=== PATIENT | male | born 1960 ===

== ENCOUNTER 2020-02-17 09:05 | Outpatient (REF) | payer OTHER, SELFPAY ==
[2020-02-17 12:02] LABS: Alanine Aminotransferase 48 U/L (0-40); Albumin Level 4.4 g/dL (3.5-5.0); Alkaline Phosphatase 85 U/L (39-117); Anion Gap 10 (12-20); Aspartate Amino Transferase 44 U/L (5-37); Bilirubin Total 1.6 mg/dL (0.0-1.0); Blood Urea Nitrogen 16 mg/dL (9-16); Calcium 9.8 mg/dL (8.4-10.2); Carbon Dioxide 28 mmol/L (22-29); Chloride 105 mmol/L (96-108); Cholesterol 233 mg/dL; Estimated Glomerular Filt Rate > 60; Glucose Fasting 91 mg/dL (60-99); HDL Cholesterol 34 mg/dL; LDL Cholesterol Calculated 153 mg/dl; Potassium 4.6 mmol/l (3.3-5.1); Sodium 138 mmol/L (135-145); Total Protein 6.8 g/dL (6.5-8.0); Triglycerides 231 mg/dL
[2020-02-17 12:23] LABS: Prostate Specific Antigen Scr 0.81 ng/mL (<0.05-4.0); TSH reflex Free T4 0.84 mIU/mL (0.32-4.0); Vitamin D 25-OH Total 27.4 ng/mL (>30)
== END 2020-02-17 09:06 | disposition home or self-care (01) ==
LOC: HO.HMGCLDS 09:05
PROVIDERS: PCP Nurse Practitioner Family; Visit Provider Nurse Practitioner Family
DX: Z13.1 Encounter for screening for diabetes mellitus (principal); Z13.220 Encounter for screening for lipoid disorders; Z13.21 Encounter for screening for nutritional disorder; Z13.29 Encounter for screening for other suspected endocrine disorder; Z12.5 Encounter for screening for malignant neoplasm of prostate
CPT/HCPCS: 36415; 80053; 80061; 82306; 84153; 84443

== ENCOUNTER → 2020-03-01 13:27 | Outpatient (REF) | payer OTHER, SELFPAY ==
--- NOTE | 2020-03-01 14:00 | CA_ITS ---
Transthoracic Echocardiogram Patient (Last, First, Middle): Navid Bates, Gender: Male Date of : 1960 Age: 59 Procedure Date: 03/01/2020 Procedure Type: Transthoracic Echocardiogram Location: OP Height: 165.1 cm Weight: 72.58 kg BSA: 1.80 m2 Heart Rate: bpm BP: 136 / 86 mmHg Gambling Counsellor: FIDE Referring MD: Manjit Kapoor [facility] Symptoms: R01.1 Systolic murmur Conclusions: - Normal biventricular function. No significant valvular or pericardial pathology noted. Normal PA pressures. Findings Left Ventricle Normal left ventricular size and systolic function. There is mildly increased left ventricular wall thickness. The visually estimated ejection fraction is between 60-65%. There is no evidence of regional wall motion abnormalities. Diastolic function is indeterminate on the basis of available data. Spectral Doppler is indicative of an impaired relaxation filling pattern. E/E prime ratio is <8, consistent with normal filling pressures. Right Ventricle Normal right ventricular cavity size and systolic function. Atria Both atria are normal in size. Aortic Valve Normal aortic valve structure and function. There is no aortic valve stenosis. There is no aortic valve regurgitation. Mitral Valve Normal mitral valve structure and function. There is trace mitral valve regurgitation. There is no mitral valve stenosis. Pulmonic Valve Normal pulmonic valve structure and function. There is trace pulmonic valve regurgitation. Tricuspid Valve Normal tricuspid valve structure and function. There is trace tricuspid valve regurgitation. Normal right atrial pressure. There is no evidence of pulmonary hypertension. Great Vessels The visualized portions of the pulmonary artery and branches are normal. Venous The inferior vena cava is normal in size and collapses greater than 50% with inspiration. Pericardium/Pleural There is no evidence of pericardial effusion. Prior Study Comparison No prior study available for comparison. Measurements M-Mode Liner Measurements Normals - Women/Men IVSd: 1.50 0.6-0.9/0.6-1.0 cm LVIDd: 4.36 3.9-5.3/4.2-5.9 cm LVIDd Index: 2.42 1.9-3.2 cm/m2 LVPWd: 1.29 0.6-0.9/0.6-1.0 cm LV Mass: 293.95 67-162/88-224g LV Mass Index: 163.31 43-95/49-115 g/m2 M-Mode Volumes LV EDV: 85.80 2D Linear Measurements IVSd: 1.34 0.6-0.9/0.6-1.0 cm LVIDd: 4.60 3.9-5.3/4.2-5.9 cm LVIDd Index: 2.56 2.4-3.2/2.2-3.1 cm/m2 LVIDs: 2.93 2.0-3.6 cm LVPWd: 1.03 0.7-1.1 cm Ao Root: 2.80 2.1-3.5 cm LA Diam: 3.10 2.7-3.8/3.0-4.0 cm LAIDs Index: 1.72 1.5-2.3 cm/m2 LV Mass: 250.92 67-162/88-224 g LV Mass Index: 139.40 43-95/49-115 g/m2 LVOT Diam: 2.00 3.0+(-)1.3 cm 2D Systolic Function EF 4C: 58.40 >55% EF 2C: 76.40 >55% EF BiP: 68.10 >55% Mitral Valve MV Pk E: 0.54 MV PK A: 0.68 MV Decel Time: 217.00 E/A: 0.80 E'Lateral: 7.45 E/E' Lat: 7.30 PHT: 63.00 MVA PHT: 3.49 Decel [place]: 2.51 Aortic Valve AoV Pk Baron: 1.37 AoV Pk Grad: 8.00 LVOT LVOT Pk Baron: 1.12 LVOT Mn Baron: 0.79 LVOT VTI: 0.21 LVOT Pk Grad: 5.00 LVOT Mn Grad: 3.00 LVOT Diam: 2.00 LVOT Area: 3.14 Diastolic Function MV Pk E: 0.54 MV Pk A: 0.68 E/A: 0.80 E' Laterial: 7.45 E/E' Lat: 7.30 Tricuspid Valve TR Pk Baron: 2.36 TR Pk Grad: 22.00 RA Press: 3.00 RVSP: 25.00 Great Vessels Aorta Ao Root-2D: 2.80 2.0-3.7 cm Ao Asc: 3.00 2.1-3.4 cm Updated in Other Vendor System with Status of Final Bi Lopez MD electronically signed on 03/02/2020 7:23:35 PM with status of Final
== END ==
LOC: HO.CARD 13:27
PROVIDERS: PCP Nurse Practitioner Family; Visit Provider Nurse Practitioner Family
DX: R01.1 Cardiac murmur, unspecified (principal)
CPT/HCPCS: 93306

== ENCOUNTER 2020-03-06 08:54 | Outpatient (REF) | payer OTHER, SELFPAY ==
--- NOTE | 2020-03-06 08:57 | US_ITS ---
EXAMINATION: US ABDOMEN COMPLETE CLINICAL INFORMATION: Elevated LFTs. COMPARISON: None TECHNIQUE: Real-time imaging of the abdominal viscera. FINDINGS: PANCREAS: Normal. ABDOMINAL AORTA: The proximal, mid, and distal segments are normal in caliber. INFERIOR VENA CAVA: Visualized portions are normal. LIVER: The liver is normal in size. The liver contour is normal. Parenchymal echogenicity is normal. No focal hepatic lesion. There is no intrahepatic biliary duct dilatation seen. There is echogenic granuloma, right lobe, measuring 0.6 x 0.7 x 0.6 cm. GALLBLADDER: Normal. The gallbladder is physiologically distended without evidence of stones, sludge, polyps, wall thickening or pericholecystic fluid. COMMON BILE DUCT: Normal in caliber measuring 0.5 cm in diameter. RIGHT KIDNEY: No hydronephrosis. No renal calculi or focal parenchymal lesions. The kidney measures 10.4 cm in maximum dimension. There is an echogenic area in the midpole measuring 0.3 x 0.5 x 0.4 cm suspicious for a small stone or calcification. No caliectasis seen. LEFT KIDNEY: No hydronephrosis or renal calculi. The kidney measures 10.3 cm in maximum dimension. There is an exophytic cyst midpole laterally measuring 1.7 x 2.2 x 2.3 cm. SPLEEN: Normal. The spleen measures 8.9 cm in maximum dimension. FREE FLUID: None. IMPRESSION: 1. Granuloma right hepatic lobe measuring 0.7 cm. 2. Nonobstructive echogenic stone or calcification, midpole right kidney. 3. Exophytic cyst, midpole left kidney. 4. Visualized gallbladder, CBD, pancreas and aorta appear unremarkable. The spleen is unremarkable.
[2020-03-06 11:55] LABS: Alanine Aminotransferase 52 U/L (0-40); Albumin Level 4.1 g/dL (3.5-5.0); Alkaline Phosphatase 81 U/L (39-117); Aspartate Amino Transferase 42 U/L (5-37); Bilirubin Direct 0.3 mg/dL (0.0-0.5); Bilirubin Total 0.8 mg/dL (0.0-1.0); Cholesterol 223 mg/dL; HDL Cholesterol 34 mg/dL; LDL Cholesterol Calculated 161 mg/dl; Total Protein 6.6 g/dL (6.5-8.0); Triglycerides 142 mg/dL
== END 2020-03-06 08:55 | disposition home or self-care (01) ==
LOC: HO.HMGCX 08:54
PROVIDERS: PCP Nurse Practitioner Family; Visit Provider Nurse Practitioner Family
DX: R74.8 Abnormal levels of other serum enzymes (principal)
CPT/HCPCS: 76700; 80061; 80076

== ENCOUNTER 2020-04-17 13:17 | Outpatient (REF) | payer OTHER, SELFPAY | END 2020-04-17 13:18 | disposition home or self-care (01) | LOC: HO.HMGCLDS 13:17 | PROVIDERS: PCP Nurse Practitioner Family; Visit Provider Internal Medicine | DX: Z20.828 Contact with and (suspected) exposure to other viral communicable diseases (principal) | CPT/HCPCS: C9803; U0003 ==